=== PATIENT | female | born 1945 | race Caucasian/White ===

== ENCOUNTER → 2016-07-26 15:57 | Outpatient (CLI) | payer MEDICARE ==
[2015-08-28 11:42] VITALS: BMI 25.8
[~2016-07-26 15:57] MED LIST: ACETAMINOPHEN325 MG PO; ATIVAN2 MG/ML IV; BUMINATE50 ML IV; CLONAZEPAM0.25 MG/TA PO; COREG6.25 MG PO; FLORANEX / LACT1 TAB PO; FLOVENT HFA 22012 GM INH; FUROSEMIDE10 MG/M1 IV; GABAPENTIN100 MG PO; HYDROCODON-ACE1 EAC9 PO; IMODIUM2 MG PO; INTRALIPID 20%250 ML IV; K-DUR20 MEQ PO; KLONOPIN0.5 MG PO; LASIX20 MG PO; LOMOTIL TABLET1 TAB PO; MORPHINE SULF5 MG/ML IV; NORCO 7.5/325 T1 TA1 PO; NORVASC10 MG PO; PEPCID40 MG PO; PERCOCET 10/3251 TA1 PO; PHENERGAN25 M1 PO; PHENYTOIN100 MG/4 M PO; PROCALAMINE I1000 ML IV; REGLAN INJ10 MG/2 ML IV; REMERON15 MG PO; SALINE FLUSH10 ML IV; SYNTHROID50 MCG PO; THEOCHRON300 MG PO; VENTOLIN HFA18 GM INH; XIFAXAN200 MG PO
[2016-07-26 16:47] LABS: BASOPHILS 0.3 % (0.0-2.0); EOSINOPHILS 2.1 % (0-7); HEMATOCRIT 30.5 % (36.0-48.0); HEMOGLOBIN 9.8 g/dL (12-16); IMMATURE GRANULOCYTES 0.3 % (0-5); LYMPHOCYTES 43.3 % (15-50); MCH 31.6 pg (26.0-34.0); MCHC 32.1 g/dL (31.0-37.0); MCV 98.4 fL (80.0-100.0); MEAN PLATELET VOLUME 9.6 fL (7.4-10.4); MONOCYTES 16.8 % (2-11); NEUTROPHILS 37.2 % (40-80); PLATELET COUNT 186 10x3/uL (130-400); RDW 16.8 % (11.5-14.5); WBC 3.9 10x3/uL (4.8-10.8)
[2016-07-26 16:59] LABS: ANION GAP 14.1 mmol/L (8-16); CALCIUM 8.7 mg/dL (8.5-10.1); CARBON DIOXIDE 23.4 mmol/L (21.0-32.0); CREATININE - SERUM 1.2 mg/dL (0.6-1.3); MAGNESIUM - SERUM 1.7 mg/dL (1.8-2.4); POTASSIUM - SERUM 4.5 mmol/L (3.5-5.1)
== END | disposition home or self-care (01) ==
LOC: D.LAB 08:00
PROVIDERS: Internal Medicine Cardiovascular Disease
DX: C56.9 Malignant neoplasm of unspecified ovary (principal)

== ENCOUNTER → 2016-08-09 16:08 | Outpatient (CLI) | payer MEDICARE ==
[2015-08-28 11:42] VITALS: BMI 25.8
[2016-08-09 17:15] LABS: BASOPHILS 0.7 % (0.0-2.0); HEMATOCRIT 29.7 % (36.0-48.0); HEMOGLOBIN 9.8 g/dL (12-16); IMMATURE GRANULOCYTES 0.3 % (0-5); LYMPHOCYTES 28.2 % (15-50); MCH 32.2 pg (26.0-34.0); MCV 97.7 fL (80.0-100.0); MEAN PLATELET VOLUME 9.9 fL (7.4-10.4); MONOCYTES 6.2 % (2-11); NEUTROPHILS 63.6 % (40-80); PLATELET COUNT 194 10x3/uL (130-400); RBC 3.04 10x6/uL (4.00-5.40); WBC 3.1 10x3/uL (4.8-10.8)
== END | disposition home or self-care (01) ==
LOC: D.LAB 08:15
PROVIDERS: Obstetrics & Gynecology Gynecology
DX: C56.9 Malignant neoplasm of unspecified ovary (principal)

== ENCOUNTER 2016-11-21 10:53 | Outpatient (CLI) | payer MEDICARE ==
[~2016-11-21] VITALS: Ht 166.4 cm; Wt 75.0 kg
--- NOTE | ~2016-11-21 | HEMODYNAMI ---
PATIENT:GLO REEVES MEDICAL RECORD: [id number] : 47 LOCATION:[facility] ADMISSION DATE: 11/21/16 Generatedon:11/21/201613:36 Patient name: GLO REEVES Patient #: [id number] SSN: : 1945 Date of study: 11/21/2016 Page: Of Hemodynamic Procedure Report Patient Data Patient Demographics Procedure consent was obtained First Name: GLO Gender: Female Last Name: LALA : 1945 Middle Initial: M Age: 71 year(s) Patient #: [id number] Race: Unknown Additional ID: [id number] Contact details Address: [address] [place] [address] State: [place] City: [place] Zip code: [address] Past Medical History Allergies Allergen Reaction Date Comments Reported Other allergy 11/21/2016 Zofran Admission Admission Data Admission Date: 11/21/2016 Admission Time: 10:53 Procedure Procedure Types Cath Procedure Diagnostic Procedure LHC LHC w/Coronaries Miscellaneous Procedures Moderate Sedation up to 15 minutes Procedure Description Procedure Date Procedure Date: 11/21/2016 Procedure Start Time: 13:19 Procedure End Time: 13:32 Procedure Staff Name Function Wild Garza MD Performing Physician Shanell Alexander RT Scrub Kristal Lora RN Nurse Gali Salas RT Monitor Procedure Data Cath Procedure Fluoroscopy Diagnostic fluoroscopy Total fluoroscopy Time: 2 time: 2 min min Diagnostic fluoroscopy Total fluoroscopy dose: 139 dose: 139 mGy mGy Contrast Material Contrast Material Type Amount (ml) Isovue 300 62 Entry Location Entry Primary Successful Side Size Upsize Upsize Entry Closure Succes sful Closure Location (Fr) 1 (Fr) 2 (Fr) Remarks Device Remarks Femoral Right 5 Fr Exoseal artery Estimated blood loss: 10 ml Diagnostic catheters Device Type Used For End Catheter Placement Medtronic Dexterity 5Fr Procedure JL 4.0 catheter (NO CHARGE) Medtronic Dexterity 5Fr Procedure 3DRC catheter (NO CHARGE) Medtronic Dexterity 5Fr Procedure Pigtail catheter (NO CHARGE) Procedure Complications No complications Procedure Medications Medication Administration Route Dosage Oxygen NC 2 l/min Lidocaine 2% added to field 20 Heparin Flush Bag added to field 2 bags (1000units/500ml NS) 0.9% NaCl I.V. 100 ml/hr Versed I.V. 1 mg Fentanyl I.V. 50 mcg Versed I.V. 1 mg Fentanyl I.V. 50 mcg Fentanyl I.V. 50 mcg Hemodynamics Rest Heart Rate: 84 (bpm) Pressure Samples Time Site Value (mmHg) Purpose Heart Use Rate(bpm) 13:26 LV 129/0,17 Snapshot 86 13:26 AO 137/69(100) Pullback 85 13:26 LV 140/0,19 Pullback 85 Gradients Valve Time Site 1 Site 2 Mean SEP/DFP Peak To Heart Use (mmHg) (sec/min) Peak Rate (mmHg) (bpm) Aortic 13:26 LV AO 8 21 3 85 140/0,19 137/69(100) Calculations Valve P-P Mean Valve Index Valve Source Name Gradient Area Flow (cm2) Aortic 3 8 3 8 Snapshots Pre Cath Intra NCS Post Cath Vital Signs Time Heart Resp SPO2 NIBP (mmHg) Rhythm Pain Sedation Rate (ipm) (%) Status Level (bpm) 13:11:35 80 17 100 153/84(127) NSR 0 (11) 10(A) , No pain 13:15:59 79 19 97 129/81(103) NSR 0 (11) 10(A) , No pain 13:20:20 74 16 97 127/66(102) NSR 0 (11) 9(A) , No pain 13:24:40 84 17 97 129/73(101) NSR 0 (11) 9(A) , No pain 13:28:56 85 17 97 118/73(94) NSR 0 (11) 9(A) , No pain 13:34:38 87 17 99 138/89(119) NSR 0 (11) 10(A) , No pain Medications Time Medication Route Dose Verified Delivered Reason Notes Effe ctiveness by by 13:11:30 Oxygen NC 2 Wild Buffie used for l/min Greg Loar lump roller 13:11:40 Lidocaine 2% added 20ml Wild Wild for local to vial Greg Garza MD anesthetic field 13:11:45 Heparin Flush added 2 Wild Wild used for Bag to bags Greg Garza MD procedure (1000units/500ml field NS) 13:11:56 0.9% NaCl I.V. 100 Wild Buffie Per ml/hr Greg Lora RN physician 13:18:11 Versed I.V. 1 mg Wild Buffie for Greg Lora RN sedation 13:18:17 Fentanyl I.V. 50 Wild Buffie for mcg Greg Lora RN sedation 13:22:43 Versed I.V. 1 mg Wild Buffie for Greg Lora RN sedation 13:22:47 Fentanyl I.V. 50 Wild Buffie for mcg Greg Lora RN sedation 13:26:06 Fentanyl I.V. 50 Wild Buffie for mcg Greg Lora RN sedation Procedure Log Time Note 12:41:27 Diagnostic Cath Status : Elective 12:41:42 Kristal Lora RN sent for patient. Start room use. 12:41:43 Time tracking: Regular hours 12:41:47 Plan of Care:Hemodynamics will remain stable., Cardiac rhythm will remain stable., Comfort level will be maintained., Respiratory function will remain adequate., Patient/ family verbilizes understanding of procedure., Procedure tolerated without complication., Recovers from procedure without complications.. 12:57:56 Patient received from Pre/Post Procedure Room to CCL 3 Alert and oriented. Tansferred to table in Supine position. 12:57:57 Warm blankets applied, and bobby hugger turned on for patient comfort. 12:57:57 Correct patient and procedure confirmed by team. 12:57:59 Signed procedure consent form obtained from patient. 12:58:00 ECG and BP/O2 sat monitors applied to patient. 13:10:07 Vital chart was started 13:10:08 Baseline sample Acquired. 13:10:18 Rhythm: sinus tachycardia 13:10:20 Full Disclosure recording started 13:10:42 H&P Date Dictated: 11/21/2016 Within 30 days and on chart., H&P Addendum completed by physician on day of procedure. (MUST COMPLETE FOR ALL OUTPATIENTS). 13:10:44 Pre-procedure instructions explained to patient. 13:10:46 Family in waiting room. 13:10:51 Patient NPO since Midnight. 13:11:02 Patient allergic to Other allergyZofran 13:11:05 Is the patient allergic to Iodine/contrast media? No. 13:11:08 Is patient on blood thinner?No 13:11:17 Patient diabetic? No. 13:11:25 Snore? No 13:11:27 Sleep apnea? No 13:11:30 Oxygen 2 l/min NC was administered by Kristal Lora RN; used for procedure; 13:11:35 Dentures? No ? 13:11:40 Lidocaine 2% 20ml vial added to field was administered by Wild Garza MD; for local anesthetic; 13:11:45 Heparin Flush Bag (1000units/500ml NS) 2 bags added to field was administered by Wild Garza MD; used for procedure; 13:11:52 IV patent on arrival in right forearm with 0.9% NaCl at [facility]. 13:11:56 0.9% NaCl 100 ml/hr I.V. was administered by Kristal Lora RN; Per physician; 13:15:21 Lab results completed and on chart. 13:15:25 Right groin area was prepped with chlora-prep and draped in sterile fashion 13:15:33 Alarms reviewed by R. N. 13:15:35 Sharps counted by scrub and verified by R.N. 13:15:36 Physician paged 13:15:36 Physician arrived 13:15:54 --------ALL STOP TIME OUT------ 13:15:54 Final Timeout: patient, procedure, and site verified with staff and physician. All members of the team are in agreement. 13:15:57 Right groin site verified by team. 13:16:02 Sedation plan: IV Moderate Sedation Versed, Fentanyl 13:16:06 Physical assessment completed. ASA score P 2 - A patient with mild systemic disease as per Wild Garza MD. 13:18:11 Versed 1 mg I.V. was administered by Kristal Lora RN; for sedation; 13:18:17 Fentanyl 50 mcg I.V. was administered by Kristal Lora RN; for sedation; 13:19:13 Zero performed for pressure channel P1 13:19:50 Procedure started. 13:19:55 Local anesthetic to right femoral artery with Lidocaine 2% by Wild Garza MD.INITIAL ACCESS ONLY 13:20:39 A 5 Fr sheath was inserted into the Right Femoral artery 13:20:49 Use device set Femoral Dx 13:21:43 Acist Syringe opened to sterile field. 13:21:44 Bag Decanter opened to sterile field. 13:21:44 Medline Cath Pack opened to sterile field. 13:21:45 Terumo 5Fr Register Sheath opened to sterile field. 13:21:46 St Rodolfo 260cm J .035 wire opened to sterile field. 13:21:51 Acist Hand Control opened to sterile field. 13:21:52 Acist Manifold opened to sterile field. 13:21:53 Tegaderm 4 x 4 opened to sterile field. 13:22:05 A Medtronic Dexterity 5Fr JL 4.0 catheter (NO CHARGE) was advanced over the wire and used for Procedure. 13:22:26 LCA angiography performed. 13:22:43 Versed 1 mg I.V. was administered by Kristal Lora RN; for sedation; 13:22:47 Fentanyl 50 mcg I.V. was administered by Kristal Lora RN; for sedation; 13:22:58 Catheter removed. 13:23:10 A Medtronic Dexterity 5Fr 3DRC catheter (NO CHARGE) was advanced over the wire and used for Procedure. 13:23:16 RCA angiography performed. 13:24:21 Catheter removed. 13:25:04 A Medtronic Dexterity 5Fr Pigtail catheter (NO CHARGE) was advanced over the wire and used for Procedure. 13:25:25 LV angiography performed. 13:26:06 Fentanyl 50 mcg I.V. was administered by Kristal Lora RN; for sedation; 13:27:03 EF : 55 % 13:27:04 Catheter removed. 13:27:37 Cordis 5Fr Exoseal opened to sterile field. 13:28:04 Sheath removed intact; hemostasis achieved with Exoseal to the Right Femoral artery. 13:28:08 Procedure ended.(Physican Out) ::28 Fluoroscopy time 02.00 minutes. ::34 Fluoroscopy dose: 139 mGy 13::34 Flurop Dose total: 139 13::41 Contrast amount:Isovue 300 62ml. 13:29:43 Sharps counted by scrub and verified by R.N. 13:29:47 Insertion/operative site no bleeding no hematoma. 13:29:52 Post-op/insertion site Right Femoral artery dressed using a 4 x 4 and Tegaderm. 13:31:17 Post right femoral artery:stable 13:31:20 Post Procedure Pulses reassessed and unchanged 13:31:25 Post procedure rhythm: unchanged. 13:31:28 Estimated blood loss: 10 ml 13:31:29 Post procedure instruction explained to patient.Patient verbalizes understanding. 13:31:40 Procedure type changed to Cath procedure, Diagnostic procedure, LHC, LHC w/Coronaries, Miscellaneous Procedures, Moderate Sedation up to 15 minutes 13:31:41 Procedure and supply charges have been captured, reviewed, submitted and are correct. 13:32:06 Procedure Complication : No complications 13:32:10 Vital chart was stopped 13:32:11 See physician's report for complete and final results. 13:32:15 Report given to Pre/Post Procedure Room. 13:32:18 Patient transfered to Pre/Post Procedure Room with Stretcher. 13:32:20 Procedure ended. 13:32:20 Full Disclosure recording stopped 13:32:31 End room use (Document Last) Device Usage Item Name Manufacture Quantity Catalog Hospital Part Current Minimal Lo t# / Number Charge Number Stock Stock Serial# Code Acist Acist 1 [id number] [id number] [id number] [id number] 20 Syringe Medical Systems Inc Bag Microtek 1 2002S [id number] 11826 [id number] 5 DecSpaBooker Inc. Medline Cardinal 1 [id number] 225613 11670 229713 5 Constant [facility] 1 [id number] 528436 352646 102869 [address] Rodolfo St Rodolfo 1 927105 402435 077763 [id number] 30 260cm J .035 wire Acist Acist 1 75187 909983 931217 591548 5 Hand Medical Control Systems Inc Acist Acist 1 46521 377331 758042 560075 5 Manifold Medical Systems Inc Tegaderm 1 1626W 546320 133674 559883 5 4 x 4 Medtronic Medtronic 1 [id number] 204101 491716 5 Dexterity 5Fr JL 4.0 catheter (NO CHARGE) Medtronic Medtronic 1 [id number] 334656 534536 5 Dexterity 5Fr 3DRC catheter (NO CHARGE) Medtronic Medtronic 1 [id number] 577492 422606 5 Dexterity 5Fr Pigtail catheter (NO CHARGE) Edyta Molina 1 EX500 609296 702635 161827 10 5Fr Health Exoseal Signature Audit [place] Stage Time Signature Unsigned Intra-Procedure 11/21/2016 Gali Salas 1:36:26 PM RT(R) Signatures Monitor : Gali Salas Signature : RT Date : Time : [address] [place] [address]
--- NOTE | ~2016-11-21 | OP ---
PATIENT NAME: GLO REEVES MEDICAL RECORD: [id number] :47 LOCATION:D.CAT ADMISSION DATE: SURGEON: RAFAEL PARKS M.D. DATE OF OPERATION: 11/21/2016 REFERRING PHYSICIAN: Jorden Love MD. PROCEDURES PERFORMED: 1. Selective coronary angiography. 2. Left heart catheterization with ventriculogram. INDICATION: A 71-year-old who presents with symptoms of angina and abnormal Cardiolite stress test revealing anterior wall ischemia. EQUIPMENT USED: A 5-[place] JL4, Joseph right, pigtail catheter. TECHNIQUE: A 5-[place] sheath was inserted in retrograde fashion in the right common femoral artery. Next, selective coronary angiography was performed in standard views using 5-[place] JL4 and Joseph right. Left heart catheterization was performed using a pigtail catheter. CORONARY ANATOMY: 1. Left main: Left main trunk is moderate in caliber. It gives rise to the LAD and circumflex. It is a smooth-walled vessel and angiographically normal. 2. LAD: This is a large caliber vessel extending to the apex. It gives rise to a moderate caliber diagonal proximal segment. The LAD and diagonal are smooth-walled vessels and angiographically normal. 3. Circumflex: This vessel is moderate in caliber. It is smooth-walled vessel and angiographically normal. 4. Right coronary artery: This vessel is moderate in caliber and dominant. It provides the PDA and distal segment. This vessel is smooth-walled and angiographically normal. 5. Left ventricle: Left ventricle is normal in size and function. No wall motion abnormalities are seen. Estimated ejection fraction is 55%. IMPRESSION: 1. Normal coronary arteries. 2. Normal left ventricular function. RECOMMENDATIONS: I suspect the Cardiolite stress was false positive. We will continue with medical management. TRANSINT:[id number] Voice Confirmation ID: [id number] DOCUMENT ID: [id number] RAFAEL PARKS M.D. CC: [id number] DICTATION DATE: 11/21/16 1337 ELECTRONIC PREPRESS SYSTEM OPERATOR: 11/21/161947 DEP CLI 11/21/16 [facility] [address] [id number]
[2016-11-21] MEDS ORDERED: LISINOPRIL10 MG PO (11:23)
[2016-11-21 11:24] VITALS: BP 168/89; Ht 166.4 cm; Wt 75.0 kg
[2016-11-21 11:41] LABS: BASOPHILS 0.6 % (0-2); EOSINOPHILS 3.5 % (0-7); HEMATOCRIT 30.9 % (36.0-48.0); IMMATURE GRANULOCYTES 0.3 % (0-5); LYMPHOCYTES 41.5 % (15-50); MCH 31.8 pg (26.0-34.0); MCHC 32.4 g/dL (31.0-37.0); MCV 98.4 fL (80.0-100.0); MEAN PLATELET VOLUME 9.7 fL (7.4-10.4); MONOCYTES 13.5 % (2-11); NEUTROPHILS 40.6 % (40-80); PLATELET COUNT 178 10x3/uL (130-400); RBC 3.14 10x6/uL (4.00-5.40); RDW 15.3 % (11.5-14.5); WBC 3.2 10x3/uL (4.8-10.8)
[2016-11-21 12:00] LABS: ANION GAP 15.1 mmol/L (8-16); CALCIUM 8.6 mg/dL (8.5-10.1); CARBON DIOXIDE 20.9 mmol/L (21.0-32.0); CREATININE - SERUM 1.6 mg/dL (0.6-1.3)
--- NOTE | 2016-11-21 14:34 | NUR ---
1350 RECEIVED PT FROM ANDROID PROGRAMMER. PT IS DROWSY, AWAKENS TO VERBAL STIMULI. DENIES ANY C/O PAIN OR NAUSEA. DRESING TO RIGHT GROIN IS CDI, NO BLEEDING OR HEMATOMA NOTED AT SITE. VSS. AT BEDSIDE. CALL LIGHT IN REACH. 1405 PT DENIES ANY C/O. DRESSING TO RIGHT GROIN IS CDI, NO BLEEDING OR HEMATOMA NOTED.
--- NOTE | 2016-11-21 14:41 | NUR ---
1440 PT DENIES ANY C/O. VSS. DRESING RIGHT GROIN IS CDI, NO BLEEDING OR HEMATOMA NOTED. AT BEDSIDE.
--- NOTE | 2016-11-21 15:26 | NUR ---
1515 PT STATES SHE HAS A HEADACHE, REQUESTS HER HOME DOSE OF 2 REGULAR STRENGTH ASPIRIN TABS SHE USES PRN FOR HEADACHES. TC TO DR PARKS WITH ORDER RECEIVED.
--- NOTE | 2016-11-21 16:32 | NUR ---
1615 PORT HAS BEEN FLUSHED AND DEACCESSED PER PROTOCOL. REVIEWED DC INSTRUCTIONS WITH PT AND WHO VERBALIZE UNDERSTANDING. PT ESCORTED TO PRIVATE AUTO VIA WC BY STAFF WITH DRIVING HER HOME.
== END 2016-11-21 16:15 | disposition home or self-care (01) ==
LOC: D.CATH 10:53
PROVIDERS: Internal Medicine Cardiovascular Disease
DX: I20.9 Angina pectoris, unspecified (principal); R94.30 Abnormal result of cardiovascular function study, unspecified; Z01.812 Encounter for preprocedural laboratory examination

== ENCOUNTER → 2017-01-11 16:17 | Outpatient (CLI) | payer MEDICARE ==
[2016-11-21 11:24] VITALS: BMI 27.1
[~2017-01-11 16:17] MED LIST changes: +LISINOPRIL10 MG PO
[2017-01-11 16:47] LABS: BASOPHILS 0.5 % (0-2); EOSINOPHILS 10.4 % (0-7); HEMATOCRIT 34.6 % (36.0-48.0); IMMATURE GRANULOCYTES 0.4 % (0-5); MCH 31.3 pg (26.0-34.0); MCHC 31.8 g/dL (31.0-37.0); MCV 98.3 fL (80.0-100.0); MEAN PLATELET VOLUME 9.9 fL (7.4-10.4); MONOCYTES 6.5 % (2-11); NEUTROPHILS 58.2 % (40-80); PLATELET COUNT 190 10x3/uL (130-400); RBC 3.52 10x6/uL (4.00-5.40); RDW 14.8 % (11.5-14.5); WBC 5.7 10x3/uL (4.8-10.8)
[2017-01-11 17:17] LABS: ALBUMIN 3.9 g/dL (3.4-5.0); ANION GAP 18.1 mmol/L (8-16); BILIRUBIN - INDIRECT 0.29 mg/dL (0.00-1.00); BILIRUBIN - TOTAL 0.33 mg/dL (0.2-1.3); CARBON DIOXIDE 20.7 mmol/L (21.0-32.0); CREATININE - SERUM 1.5 mg/dL (0.6-1.3); MAGNESIUM - SERUM 1.9 mg/dL (1.8-2.4); PHOSPHOROUS 4.3 mg/dL (2.5-4.9); POTASSIUM - SERUM 4.8 mmol/L (3.5-5.1)
[2017-01-11 17:19] LABS: BILIRUBIN - DIRECT 0.04 mg/dL (0.00-0.30)
== END | disposition home or self-care (01) ==
LOC: D.LAB 08:00
PROVIDERS: Obstetrics & Gynecology Gynecology
DX: C56.9 Malignant neoplasm of unspecified ovary (principal)

== ENCOUNTER → 2017-01-19 15:53 | Outpatient (CLI) | payer MEDICARE ==
[2016-11-21 11:24] VITALS: BMI 27.1
[2017-01-19 16:23] LABS: BASOPHILS 0.6 % (0-2); EOSINOPHILS 8.2 % (0-7); HEMATOCRIT 33.6 % (36.0-48.0); IMMATURE GRANULOCYTES 0.1 % (0-5); LYMPHOCYTES 20.4 % (15-50); MCH 31.3 pg (26.0-34.0); MCHC 32.7 g/dL (31.0-37.0); MCV 95.7 fL (80.0-100.0); MEAN PLATELET VOLUME 9.4 fL (7.4-10.4); MONOCYTES 8.4 % (2-11); NEUTROPHILS 62.3 % (40-80); PLATELET COUNT 171 10x3/uL (130-400); RBC 3.51 10x6/uL (4.00-5.40); RDW 14.5 % (11.5-14.5); WBC 6.8 10x3/uL (4.8-10.8)
== END | disposition home or self-care (01) ==
LOC: D.LAB 01-18 08:00
PROVIDERS: Obstetrics & Gynecology Gynecology
DX: C56.9 Malignant neoplasm of unspecified ovary (principal)

== ENCOUNTER 2017-07-28 08:35 | Emergency (ER) | payer MEDICARE ==
[2016-11-21 11:24] VITALS: BMI 27.1
[2017-07-28 09:05] LABS: APPEARANCE CLEAR (CLEAR); COLOR YELLOW (YELLOW)
[2017-07-28 09:06] LABS: BACTERIA MODERATE /hpf (NONE SEEN); BILIRUBIN NEGATIVE (NEGATIVE); EPITHELIAL CELLS 0-5 /hpf (0-5); GLUCOSE NEGATIVE (NEGATIVE); KETONE NEGATIVE (NEGATIVE); MUCUS <1+ /lpf (NONE SEEN); NITRITE NEGATIVE (NEGATIVE); PROTEIN TRACE mg/dL (NEGATIVE); RED CELLS - URINE 0-5 /hpf (0-5); UROBILINOGEN NORMAL (NORMAL)
[2017-07-28 09:07] LABS: BASOPHILS 0.4 % (0-2); EOSINOPHILS 2.5 % (0-7); HEMATOCRIT 31.2 % (36.0-48.0); HEMOGLOBIN 9.9 g/dL (12-16); IMMATURE GRANULOCYTES 0.3 % (0-5); LYMPHOCYTES 15.5 % (15-50); MCH 30.3 pg (26.0-34.0); MCHC 31.7 g/dL (31.0-37.0); MCV 95.4 fL (80.0-100.0); MEAN PLATELET VOLUME 9.3 fL (7.4-10.4); NEUTROPHILS 76.3 % (40-80); PLATELET COUNT 354 10x3/uL (130-400); RBC 3.27 10x6/uL (4.00-5.40); RDW 13.5 % (11.5-14.5); WBC 7.2 10x3/uL (4.8-10.8)
[2017-07-28 09:33] LABS: ALBUMIN 3.6 g/dL (3.4-5.0); BILIRUBIN - TOTAL 0.25 mg/dL (0.2-1.3); CALCIUM 9.5 mg/dL (8.5-10.1); CARBON DIOXIDE 25.4 mmol/L (21.0-32.0); CREATININE - SERUM 2.2 mg/dL (0.6-1.3); POTASSIUM - SERUM 4.4 mmol/L (3.5-5.1); PROTEIN - SERUM 7.9 g/dL (6.4-8.2)
== END 2017-07-28 12:17 | disposition home or self-care (01) ==
LOC: D.ER 08:35
PROVIDERS: Emergency Medicine
DX: R10.9 Unspecified abdominal pain (principal); N39.0 Urinary tract infection, site not specified; D64.9 Anemia, unspecified; R59.0 Localized enlarged lymph nodes; E86.0 Dehydration; N17.9 Acute kidney failure, unspecified; Z85.43 Personal history of malignant neoplasm of ovary

== ENCOUNTER → 2017-09-21 16:11 | Outpatient (CLI) | payer MEDICARE ==
[2016-11-21 11:24] VITALS: BMI 27.1
[~2017-09-21 16:11] MED LIST changes: +COLACE100 MG PO; +MACROBID100 MG PO; +NIFEDIPINE ER30 MG PO; +OXYBUTYNIN CHLOR5 MG PO; +ROXICODONE15 MG PO
[2017-09-21 16:32] LABS: BASOPHILS 0.2 % (0-2); EOSINOPHILS 0.4 % (0-7); HEMOGLOBIN 12.2 g/dL (12-16); IMMATURE GRANULOCYTES 1.6 % (0-5); LYMPHOCYTES 27.6 % (15-50); MCH 28.8 pg (26.0-34.0); MCV 87.3 fL (80.0-100.0); MEAN PLATELET VOLUME 9.1 fL (7.4-10.4); MONOCYTES 9.2 % (2-11); RBC 4.24 10x6/uL (4.00-5.40); WBC 4.5 10x3/uL (4.8-10.8)
[2017-09-21 16:33] LABS: PLATELET COUNT 83 10x3/uL (130-400)
[2017-09-21 17:08] LABS: PLATELET ESTIMATE DECREASED
== END | disposition home or self-care (01) ==
LOC: D.LAB 08:00
PROVIDERS: Obstetrics & Gynecology Gynecology
DX: C56.9 Malignant neoplasm of unspecified ovary (principal)

== ENCOUNTER → 2017-10-15 12:30 | Outpatient (CLI) | payer MEDICARE ==
[2016-11-21 11:24] VITALS: BMI 27.1
[2017-10-15 13:21] LABS: BASOPHILS 0.1 % (0-2); EOSINOPHILS 0.7 % (0-7); HEMOGLOBIN 10.6 g/dL (12-16); IMMATURE GRANULOCYTES 1.3 % (0-5); LYMPHOCYTES 9.1 % (15-50); MCH 29.4 pg (26.0-34.0); MCHC 33.1 g/dL (31.0-37.0); MCV 88.6 fL (80.0-100.0); MEAN PLATELET VOLUME 9.6 fL (7.4-10.4); MONOCYTES 10.1 % (2-11); NEUTROPHILS 78.7 % (40-80); RBC 3.61 10x6/uL (4.00-5.40); WBC 8.5 10x3/uL (4.8-10.8)
[2017-10-15 13:32] LABS: PLATELET COUNT 149 10x3/uL (130-400)
[2017-10-15 14:00] LABS: APPEARANCE SLT CLOUDY (CLEAR); BACTERIA MODERATE /hpf (NONE SEEN); BILIRUBIN NEGATIVE (NEGATIVE); COLOR PINK (YELLOW); EPITHELIAL CELLS 0-5 /hpf (0-5); GLUCOSE NEGATIVE (NEGATIVE); KETONE MODERATE mg/dL (NEGATIVE); MUCUS <1+ /lpf (NONE SEEN); NITRITE NEGATIVE (NEGATIVE); PROTEIN 3+ mg/dL (NEGATIVE); RED CELLS - URINE >50 /hpf (0-5); SPECIFIC GRAVITY 1.015 (1.005-1.020); UROBILINOGEN NORMAL (NORMAL)
[2017-10-15 14:02] LABS: APPEARANCE SLT CLOUDY (CLEAR); BACTERIA MODERATE /hpf (NONE SEEN); BILIRUBIN NEGATIVE (NEGATIVE); COLOR PINK (YELLOW); EPITHELIAL CELLS OCC /hpf (0-5); GLUCOSE NEGATIVE (NEGATIVE); KETONE MODERATE mg/dL (NEGATIVE); MUCUS <1+ /lpf (NONE SEEN); NITRITE NEGATIVE (NEGATIVE); PROTEIN 3+ mg/dL (NEGATIVE); UROBILINOGEN NORMAL (NORMAL)
== END | disposition home or self-care (01) ==
LOC: D.LAB 11:30 → D.OPS 12:30 → D.LAB 12:30
PROVIDERS: Obstetrics & Gynecology Gynecology
DX: C56.9 Malignant neoplasm of unspecified ovary (principal)

== ENCOUNTER 2017-12-14 10:10 | Inpatient (IN) | payer MEDICARE ==
[~2017-12-14] VITALS: Ht 166.4 cm; Wt 63.5 kg
--- NOTE | ~2017-12-14 | HEMODYNAMI ---
PATIENT:GLO REEVES MEDICAL RECORD: [id number] : 47 LOCATION:[facility] D.2225 ADMISSION DATE: 12/14/17 Generatedon:12/17/201710:13 Patient name: GLO REEVES Patient #: [id number] SSN: : 1945 Date of study: 12/17/2017 Page: Of Hemodynamic Procedure Report Patient Data Patient Demographics Procedure consent was obtained First Name: GLO Gender: Female Last Name: LALA : 1945 Middle Initial: M Age: 72 year(s) Patient #: [id number] Race: Unknown Additional ID: [id number] Contact details Address: [address] [place] [address] State: [place] City: [place] Zip code: [address] Past Medical History Allergies Allergen Reaction Date Comments Reported Other allergy 11/21/2016 Zofran Sulfa drugs 12/17/2017 Admission Admission Data Admission Date: 12/14/2017 Admission Time: 18:12 Room #: D.2225 Height (in.): 65.5 BSA: 1.71 (m2) Height (cm.): 166.37 BMI: 22.94 (kg/m2) Weight (lbs.): 140 Weight (kg.): 63.5 Procedure Procedure Types Cath Procedure Peripheral Cath Diagnostic Procedure Cath Peripheral Nephro Nephrostomy Tube Exchange Procedure Description Procedure Date Procedure Date: 12/17/2017 Procedure Start Time: 9:23 Procedure Staff Name Function Ajay Vázquez MD Performing Physician Dary Beverly RT Artificial Plastic Eye Maker Dary Bveerly RT Monitor Yg Hart RT Scrub Isela Mathis RN Nurse Nini Chauhan RN Nurse Procedure Data Cath Procedure Fluoroscopy Diagnostic fluoroscopy Total fluoroscopy Time: 0 time: 0 min min Diagnostic fluoroscopy Total fluoroscopy dose: 100 dose: 100 mGy mGy Contrast Material Contrast Material Type Amount (ml) Isovue 300 25 Procedure Medications Medication Administration Route Dosage unlisted medication Versed I.V. 1 mg Fentanyl I.V. 50 mcg Lidocaine 1% added to field 20 Heparin Flush Bag added to field 1 bags (1000units/500ml NS) Fentanyl I.V. 50 mcg Versed I.V. 1 mg Versed I.V. 1 mg Fentanyl I.V. 50 mcg Hemodynamics Rest BSA: 1.71 (m2) O2 Consumption: Estimated: 171.96 (ml/min) O2 Consumption indexed : Estimated:100.56 (ml/min/m) Heart Rate: 93 (bpm) Snapshots Pre Cath Intra NCS Post Cath Vital Signs Time Heart Resp SPO2 etCO2 NIBP (mmHg) Rhythm Pain Sedation Rate (ipm) (%) (mmHg) Status Level (bpm) 9:15:13 112 38 96 0 151/83(122) NSR 0 (11) , 10(A) No pain 9:19:32 94 17 96 0 161/79(124) NSR 0 (11) , 10(A) No pain 9:24:31 109 32 76 0 Measuring NSR 0 (11) , 10(A) No pain 9:24:55 135 19 61 0 Disturbed NSR 0 (11) , 10(A) No pain 9:29:13 109 18 96 0 150/94(101) NSR 0 (11) , 10(A) No pain 9:33:27 96 16 96 0 149/78(124) NSR 0 (11) , 10(A) No pain 9:37:47 93 15 100 30.1 147/74(103) NSR 0 (11) , 10(A) No pain 9:42:05 93 12 100 32.4 147/75(106) NSR 3 (11) , 10(A) Tolerable 9:46:17 98 13 100 29.4 152/80(123) NSR 1 (11) , 9(A) Very mild 9:50:29 90 12 99 34.6 138/71(105) NSR 1 (11) , 9(A) Very mild 9:54:39 81 9 97 30.1 121/67(86) NSR 1 (11) , 9(A) Very mild 9:58:47 87 11 97 35.4 129/79(106) NSR 1 (11) , 9(A) Very mild 10:02:59 87 13 97 33.9 139/75(111) NSR 1 (11) , 9(A) Very mild 10:07:07 87 13 98 33.1 131/76(107) NSR 1 (11) , 9(A) Very mild 10:11:19 86 12 99 31.6 136/76(103) NSR 1 (11) , 9(A) Very mild Medications Time Medication Route Dose Verified Delivered Reason Notes Effect iveness by by 9:38:24 cefepime Tien Velez RN, MD 9:38:38 Versed I.V. 1 mg Ajay Terrazas for Tien Vázquez RN sedation 9:38:52 Fentanyl I.V. 50 Ajay Nini for mcg Tien Vázquez RN sedation 9:42:48 Lidocaine 1% added 20ml Ajay Moss used for to vial Kathie Vázquez MD procedure field DEGROOT 9:43:00 Heparin Flush added 1 Ajay Moss used for Bag to bags Kathie Vázquez MD procedure (1000units/500ml field DEGROOT NS) 9:45:53 Fentanyl I.V. 50 Ajay Terrazas for mcg Tien Vázquez RN sedation 9:46:09 Versed I.V. 1 mg Ajay Terrazas for Tien Vázquez RN sedation 9:49:39 Versed I.V. 1 mg Ajay Terrazas for Tien Vázquez RN sedation 9:49:48 Fentanyl I.V. 50 Ajay Sarabiaody for mcg Tien Vázquez RN sedation Procedure Log Time Note 9:08:51 Patient Height : 65.5 inches 9:08:55 Patient Weight : 140 lbs 9:09:56 Time tracking: Regular hours (M-F 7:00 - 5:00) 9:13:39 Plan of Care:Hemodynamics will remain stable., Cardiac rhythm will remain stable., Comfort level will be maintained., Respiratory function will remain adequate., Patient/ family verbilizes understanding of procedure., Procedure tolerated without complication., Recovers from procedure without complications.. 9:13:57 Patient received from Med/Surg to IR Alert and oriented. Tansferred to table in Supine position. 9:14:00 Correct patient and procedure confirmed by team. 9:14:02 Signed procedure consent form obtained from patient. 9:14:04 ECG and BP/O2 sat monitors applied to patient. 9:14:05 Vital chart was started 9:14:07 Baseline sample Acquired. 9:14:08 Full Disclosure recording started 9:14:09 - 9:14:15 H&P Date Dictated: 12/17/2017 Within 30 days and on chart.. 9:14:29 Pre-procedure instructions explained to patient. 9:14:30 Pre-op teaching completed and patient verbalized understanding. 9:14:34 Family in waiting room. 9:14:36 Patient NPO since Midnight. 9:14:50 Patient allergic to Sulfa drugs,zofran, carboplatnum 9:15:46 Is the patient allergic to Iodine/contrast media? No. 9:15:51 Patient diabetic? No. 9:15:53 - 9:16:14 ----Pre-sedation anethsthesia assessment.---- 9:16:18 Previous problem with sedation/anesthesia? No ? 9:16:21 Snore? No 9:16:25 Sleep apnea? No 9:16:28 Deviated septum? No 9:16:29 Opens mouth fully? Yes 9:16:31 Sticks out tongue? Yes 9:16:35 Airway obstruction? No ? 9:16:39 Dentures? No ? 9:16:49 IV patent on arrival in port with D5/.45%NaCl at O. 9:17:19 Left and right renal area was prepped with chlora-prep and draped in sterile fashion 9:18:41 Physician arrived 9:20:25 Final Timeout: patient, procedure, and site verified with staff and physician. All members of the team are in agreement. 9:22:06 Procedure started. 9:23:13 Local anesthetic to renal area with Lidocaine 1% by Ajay Vázquez MD.INITIAL ACCESS ONLY 9:38:24 cefepime was administered by Nini Chauhan RN; ; 9:38:38 Versed 1 mg I.V. was administered by iNni Chauhan RN; for sedation; 9:38:52 Fentanyl 50 mcg I.V. was administered by Nini Chauhan RN; for sedation ; 9:42:48 Lidocaine 1% 20ml vial added to field was administered by Ajay Vázquez MD; used for procedure; 9:43:00 Heparin Flush Bag (1000units/500ml NS) 1 bags added to field was administered by Ajay Vázquez MD; used for procedure; 9:43:08 Use device set IR Diagnostic 9:43:11 Sterile Angiographic Pack opened to sterile field. 9:43:12 Bag Decanter (2002S) opened to sterile field. 9:43:23 GLIDE WIRE Angled Super Stiff 180cm ([id number]) opened to sterile field. 9:43:48 10FR Nephroureterostomy Stent ([id number]) opened to sterile field. 9:45:53 Fentanyl 50 mcg I.V. was administered by Nini Chauhan RN; for sedation ; 9:46:09 Versed 1 mg I.V. was administered by Nini Chauhan RN; for sedation; 9:48:07 STOPCOCK 3-Way Large Bore ([id number]) opened to sterile field. 9:48:08 STOPCOCK 3-Way Large Bore ([id number]) opened to sterile field. 9:49:39 Versed 1 mg I.V. was administered by Nini Chauhan RN; for sedation; 9:49:48 Fentanyl 50 mcg I.V. was administered by Nini Chauhan RN; for sedation ; 9:50:47 BAG, DRAINAGE EMPTY 600ML W/MARTINA ([id number]) opened to sterile field. 9:50:48 BAG, DRAINAGE EMPTY 600ML W/MARTINA (EDH568) opened to sterile field. 9:51:03 10FR Nephroureterostomy Stent (R58570) opened to sterile field. 9:53:36 SUTURE ETHILON 2-0 BLK MONO FS opened to sterile field. 9:53:37 SUTURE ETHILON 2-0 BLK MONO FS opened to sterile field. 9:54:14 bilateral neph tubes exchanged 10:02:15 Contrast amount:Isovue 300 25ml. 10:08:24 Procedure ended.(Physican Out) 10:08:30 Fluoroscopy time 00.00 minutes. 10:08:49 Fluoroscopy dose: 100 mGy 10:08:49 Flurop Dose total: 100 10:08:51 Procedure and supply charges have been captured, reviewed, submitted an d are correct. 10:08:55 Report given to Med/Surg. 10:13:41 Vital chart was stopped Device Usage Item Name Manufacture Quantity Catalog Hospital Part Current M inimal Lot# / Number Charge Number Stock Stock Serial# Code Sterile Cardinal 1 [id number] [id number] 5 Angiographic Pack Health Bag Decanter Microtek 1 [id number] 42873 [id number] 5 () Medical Inc. GLIDE WIRE Angled Terumo 1 [id number] 997607 367528 5 Super Stiff 180cm (ZY3585) 10FR [employer] 1 [id number] 646855 057267 780423 5 Nephroureterostomy Stent (T23524) STOPCOCK 3-Way [employer] 2 W59916 273514 3871 320901 5 [id number] Large Bore [id number] ([id number]) BAG, DRAINAGE Merit 2 [id number] 923733 184339 967403 5 EMPTY 600ML W/MARTINA Medical (UPR762) SUTURE ETHILON 2-0 Ethicon 2 [id number] 805038 431440 5 BLK MONO FS Signature Audit [place] Stage Time Signature Unsigned Intra-Procedure 12/17/2017 Dayr Beverly 10:13:37 AM RT(R) Signatures Monitor : Dary Beverly RT Signature : Date : Time : [facility] [address] [place] [address]
[~2017-12-14 10:10] MED LIST changes: -COLACE100 MG PO; -MACROBID100 MG PO; -NIFEDIPINE ER30 MG PO; -OXYBUTYNIN CHLOR5 MG PO; -ROXICODONE15 MG PO
[2017-12-14 14:34] LABS: BASOPHILS 0.3 % (0-2); EOSINOPHILS 1.1 % (0-7); HEMATOCRIT 34.8 % (36.0-48.0); HEMOGLOBIN 12.2 g/dL (12-16); IMMATURE GRANULOCYTES 1.1 % (0-5); LYMPHOCYTES 20.4 % (15-50); MCH 31.7 pg (26.0-34.0); MCHC 35.1 g/dL (31.0-37.0); MCV 90.4 fL (80.0-100.0); MEAN PLATELET VOLUME 8.9 fL (7.4-10.4); MONOCYTES 7.6 % (2-11); NEUTROPHILS 69.5 % (40-80); PLATELET COUNT 56 10x3/uL (130-400); RBC 3.85 10x6/uL (4.00-5.40); RDW 18.4 % (11.5-14.5); WBC 3.6 10x3/uL (4.8-10.8)
[2017-12-14 14:53] LABS: PLATELET ESTIMATE DECREASED
[2017-12-14 14:54] LABS: ALBUMIN 2.8 g/dL (3.4-5.0); ANION GAP 17.4 mmol/L (8-16); BILIRUBIN - TOTAL 0.55 mg/dL (0.2-1.3); CARBON DIOXIDE 22.5 mmol/L (21.0-32.0); CREATININE - SERUM 1.2 mg/dL (0.6-1.3); POTASSIUM - SERUM 3.9 mmol/L (3.5-5.1); PROTEIN - SERUM 7.2 g/dL (6.4-8.2)
[2017-12-14 15:07] LABS: COLOR YELLOW (YELLOW)
[2017-12-14 15:08] LABS: APPEARANCE CLEAR (CLEAR); BILIRUBIN NEGATIVE (NEGATIVE); GLUCOSE NEGATIVE (NEGATIVE); KETONE SMALL mg/dL (NEGATIVE); NITRITE NEGATIVE (NEGATIVE); PROTEIN 2+ mg/dL (NEGATIVE); UROBILINOGEN NORMAL (NORMAL)
[2017-12-14 15:09] LABS: WHITE CELLS - URINE 0-5 /hpf (0-5)
[2017-12-14 15:10] LABS: BACTERIA MODERATE /hpf (NONE SEEN); YEAST OCC /hpf (NONE SEEN)
[2017-12-14 15:11] LABS: APPEARANCE HAZY (CLEAR); BILIRUBIN NEGATIVE (NEGATIVE); COLOR YELLOW (YELLOW); GLUCOSE NEGATIVE (NEGATIVE); KETONE SMALL mg/dL (NEGATIVE); NITRITE POSITIVE (NEGATIVE); PROTEIN 2+ mg/dL (NEGATIVE); SPECIFIC GRAVITY 1.015 (1.005-1.020); UROBILINOGEN NORMAL (NORMAL)
[2017-12-14 15:12] LABS: BACTERIA MANY /hpf (NONE SEEN); RED CELLS - URINE >50 /hpf (0-5)
[2017-12-14 15:13] LABS: YEAST OCC /hpf (NONE SEEN)
[2017-12-14 20:00] VITALS: BP 168/83
[2017-12-14 21:41] VITALS: BP 168/83; BMI 23.0
[2017-12-14] MEDS ORDERED: MACROBID100 MG PO (21:55)
[2017-12-14] MEDS ORDERED: PHENERGAN25 M1 PO (21:56)
[2017-12-14] MEDS ORDERED: OXYBUTYNIN CHLOR5 MG PO (21:57)
[2017-12-14] MEDS ORDERED: ROXICODONE15 MG PO (21:57)
[2017-12-14] MEDS ORDERED: NIFEDIPINE ER30 MG PO (21:58)
[2017-12-14] MEDS ORDERED: COLACE100 MG PO (21:58)
[2017-12-14] MEDS ORDERED: SYNTHROID50 MCG PO (21:59)
[2017-12-15] VITALS: BP 145/77
[2017-12-15 04:00] VITALS: BP 144/83
[2017-12-15 09:04] VITALS: BP 160/81
[2017-12-15 13:22] VITALS: Ht 166.4 cm; Wt 63.5 kg
[2017-12-15 13:23] VITALS: BP 151/92
[2017-12-15 14:28] LABS: BASOPHILS 0.3 % (0-2); EOSINOPHILS 0.8 % (0-7); HEMATOCRIT 36.4 % (36.0-48.0); HEMOGLOBIN 12.7 g/dL (12-16); LYMPHOCYTES 16.1 % (15-50); MCHC 34.9 g/dL (31.0-37.0); MCV 91.7 fL (80.0-100.0); MONOCYTES 7.5 % (2-11); NEUTROPHILS 74.3 % (40-80); PLATELET COUNT 50 10x3/uL (130-400); RBC 3.97 10x6/uL (4.00-5.40); RDW 18.3 % (11.5-14.5)
[2017-12-15 14:31] LABS: WBC 6.3 10x3/uL (4.8-10.8)
[2017-12-15 15:10] LABS: ALBUMIN 2.8 g/dL (3.4-5.0); ANION GAP 17.6 mmol/L (8-16); BILIRUBIN - TOTAL 0.43 mg/dL (0.2-1.3); CALCIUM 8.4 mg/dL (8.5-10.1); CARBON DIOXIDE 22.5 mmol/L (21.0-32.0); CREATININE - SERUM 1.3 mg/dL (0.6-1.3); POTASSIUM - SERUM 4.1 mmol/L (3.5-5.1); PROTEIN - SERUM 6.6 g/dL (6.4-8.2)
[2017-12-15 15:32] LABS: PLATELET ESTIMATE DECREASED
[2017-12-15 19:36] VITALS: BP 126/68
[2017-12-16] VITALS: BP 136/69
[2017-12-16 04:00] VITALS: BP 135/72
[2017-12-16 06:36] LABS: BASOPHILS 0.3 % (0-2); EOSINOPHILS 1.2 % (0-7); HEMATOCRIT 33.6 % (36.0-48.0); HEMOGLOBIN 11.5 g/dL (12-16); IMMATURE GRANULOCYTES 0.9 % (0-5); LYMPHOCYTES 17.1 % (15-50); MCH 31.5 pg (26.0-34.0); MCHC 34.2 g/dL (31.0-37.0); MCV 92.1 fL (80.0-100.0); MEAN PLATELET VOLUME 10.1 fL (7.4-10.4); NEUTROPHILS 73.5 % (40-80); RBC 3.65 10x6/uL (4.00-5.40); RDW 18.5 % (11.5-14.5); WBC 5.7 10x3/uL (4.8-10.8)
[2017-12-16 06:38] LABS: PLATELET COUNT 45 10x3/uL (130-400)
[2017-12-16 06:45] LABS: ALBUMIN 2.4 g/dL (3.4-5.0); ANION GAP 12.9 mmol/L (8-16); BILIRUBIN - TOTAL 0.3 mg/dL (0.2-1.3); CALCIUM 8.3 mg/dL (8.5-10.1); CREATININE - SERUM 1.2 mg/dL (0.6-1.3); POTASSIUM - SERUM 3.9 mmol/L (3.5-5.1)
[2017-12-16 08:33] VITALS: BP 164/80
[2017-12-16 11:57] VITALS: BP 163/80
[2017-12-16 13:30] LABS: BASOPHILS 0.3 % (0-2); EOSINOPHILS 1.1 % (0-7); HEMATOCRIT 31.2 % (36.0-48.0); HEMOGLOBIN 10.7 g/dL (12-16); IMMATURE GRANULOCYTES 0.9 % (0-5); MCH 31.8 pg (26.0-34.0); MCHC 34.3 g/dL (31.0-37.0); MCV 92.9 fL (80.0-100.0); MEAN PLATELET VOLUME 9.3 fL (7.4-10.4); MONOCYTES 7.1 % (2-11); NEUTROPHILS 79.6 % (40-80); RBC 3.36 10x6/uL (4.00-5.40); RDW 18.6 % (11.5-14.5); WBC 6.6 10x3/uL (4.8-10.8)
[2017-12-16 13:33] LABS: APTT 26.3 SECONDS (22.8-39.4); INR 1.06 (0.85-1.17); PROTIME 13.4 SECONDS (11.6-15.0)
[2017-12-16 13:34] LABS: PLATELET COUNT 40 10x3/uL (130-400)
[2017-12-16 13:47] LABS: CREATININE - SERUM 1.1 mg/dL (0.6-1.3)
[2017-12-16 17:00] VITALS: BP 145/77
[2017-12-16 19:59] VITALS: BP 155/74
[2017-12-17 04:30] VITALS: BP 130/71
[2017-12-17 05:02] LABS: BASOPHILS 0.2 % (0-2); EOSINOPHILS 2.3 % (0-7); HEMATOCRIT 29.8 % (36.0-48.0); HEMOGLOBIN 10.1 g/dL (12-16); IMMATURE GRANULOCYTES 0.7 % (0-5); MCH 31.5 pg (26.0-34.0); MCHC 33.9 g/dL (31.0-37.0); MCV 92.8 fL (80.0-100.0); MEAN PLATELET VOLUME 11.8 fL (7.4-10.4); MONOCYTES 8.3 % (2-11); NEUTROPHILS 70.5 % (40-80); PLATELET COUNT 61 10x3/uL (130-400); RBC 3.21 10x6/uL (4.00-5.40); RDW 18.6 % (11.5-14.5); WBC 5.6 10x3/uL (4.8-10.8)
[2017-12-17 05:10] LABS: ALBUMIN 2.1 g/dL (3.4-5.0); ANION GAP 12.9 mmol/L (8-16); BILIRUBIN - TOTAL 0.33 mg/dL (0.2-1.3); CALCIUM 8.2 mg/dL (8.5-10.1); CARBON DIOXIDE 25.8 mmol/L (21.0-32.0); POTASSIUM - SERUM 3.7 mmol/L (3.5-5.1); PROTEIN - SERUM 5.8 g/dL (6.4-8.2)
[2017-12-17 07:48] LABS: INR 1.06 (0.85-1.17); PROTIME 13.4 SECONDS (11.6-15.0)
[2017-12-17 09:08] VITALS: BP 145/72
[2017-12-17 12:45] VITALS: BP 130/85
[2017-12-17 16:29] VITALS: BP 155/82
[2017-12-17 19:50] VITALS: BP 157/80
[2017-12-17 22:22] VITALS: BP 158/78
[2017-12-18 04:42] VITALS: BP 130/76
[2017-12-18 06:45] LABS: BASOPHILS 0.2 % (0-2); EOSINOPHILS 2.8 % (0-7); HEMATOCRIT 31.2 % (36.0-48.0); HEMOGLOBIN 10.4 g/dL (12-16); IMMATURE GRANULOCYTES 0.6 % (0-5); LYMPHOCYTES 15.1 % (15-50); MCH 31.4 pg (26.0-34.0); MCHC 33.3 g/dL (31.0-37.0); MCV 94.3 fL (80.0-100.0); MEAN PLATELET VOLUME 11.3 fL (7.4-10.4); MONOCYTES 7.6 % (2-11); NEUTROPHILS 73.7 % (40-80); RBC 3.31 10x6/uL (4.00-5.40); RDW 18.9 % (11.5-14.5); WBC 6.3 10x3/uL (4.8-10.8)
[2017-12-18 06:47] LABS: PLATELET COUNT 101 10x3/uL (130-400)
[2017-12-18 07:01] LABS: ALBUMIN 2.3 g/dL (3.4-5.0); BILIRUBIN - TOTAL 0.39 mg/dL (0.2-1.3); CALCIUM 8.2 mg/dL (8.5-10.1); CREATININE - SERUM 1.1 mg/dL (0.6-1.3)
[2017-12-18 08:17] VITALS: BP 133/68
[2017-12-18 12:35] VITALS: BP 128/83
[2017-12-18 15:49] VITALS: BP 147/79
[2017-12-18 20:00] VITALS: BP 150/88
[2017-12-19 01:08] VITALS: BP 163/89
[2017-12-19 04:00] VITALS: BP 149/82
[2017-12-19 05:39] LABS: BASOPHILS 0.4 % (0-2); EOSINOPHILS 4.1 % (0-7); HEMATOCRIT 28.4 % (36.0-48.0); HEMOGLOBIN 9.5 g/dL (12-16); IMMATURE GRANULOCYTES 0.5 % (0-5); LYMPHOCYTES 10.6 % (15-50); MCH 31.7 pg (26.0-34.0); MCHC 33.5 g/dL (31.0-37.0); MCV 94.7 fL (80.0-100.0); MEAN PLATELET VOLUME 10.6 fL (7.4-10.4); MONOCYTES 10.7 % (2-11); NEUTROPHILS 73.7 % (40-80); WBC 5.6 10x3/uL (4.8-10.8)
[2017-12-19 05:44] LABS: PLATELET COUNT 145 10x3/uL (130-400)
[2017-12-19 06:10] LABS: ALBUMIN 2.1 g/dL (3.4-5.0); ANION GAP 12.2 mmol/L (8-16); BILIRUBIN - TOTAL 0.4 mg/dL (0.2-1.3); CALCIUM 7.7 mg/dL (8.5-10.1); CARBON DIOXIDE 26.3 mmol/L (21.0-32.0); CREATININE - SERUM 1.1 mg/dL (0.6-1.3); POTASSIUM - SERUM 3.5 mmol/L (3.5-5.1); PROTEIN - SERUM 5.5 g/dL (6.4-8.2)
[2017-12-19 09:17] VITALS: BP 149/81
[2017-12-19 12:49] VITALS: BP 152/82
== END 2017-12-19 14:00 | disposition home health service (06) | DRG 699 ==
LOC: D.ER 10:10 → D.MS 18:12
PROVIDERS: Emergency Medicine; Family Medicine; General Practice; Radiology Vascular & Interventional Radiology
PROC: 0T25X0Z Change Drainage Device in Kidney, External Approach (ICD-10-PCS; principal; 2017-12-17 09:00)
DX: T83.518A Infection and inflammatory reaction due to other urinary catheter, initial encounter (principal); N17.9 Acute kidney failure, unspecified; E44.0 Moderate protein-calorie malnutrition; C67.9 Malignant neoplasm of bladder, unspecified; D64.9 Anemia, unspecified; D69.6 Thrombocytopenia, unspecified; E86.0 Dehydration; Z85.3 Personal history of malignant neoplasm of breast; Z85.43 Personal history of malignant neoplasm of ovary

== ENCOUNTER → 2018-01-04 18:05 | Outpatient (CLI) | payer MEDICARE ==
[2017-12-15 13:22] VITALS: BMI 22.9
[~2018-01-04 18:05] MED LIST changes: +COLACE100 MG PO; +COMPAZINE10 MG PO; +DIFLUCAN150 MG PO; +MACROBID100 MG PO; +MACRODANTIN100 MG PO; +NIFEDIPINE ER30 MG PO; +OXYBUTYNIN CHLOR5 MG PO; +ROXICODONE15 MG PO
[2018-01-04 19:35] LABS: APPEARANCE CLEAR (CLEAR); BILIRUBIN NEGATIVE (NEGATIVE); COLOR YELLOW (YELLOW); GLUCOSE NEGATIVE (NEGATIVE); KETONE NEGATIVE (NEGATIVE); NITRITE NEGATIVE (NEGATIVE); PROTEIN TRACE mg/dL (NEGATIVE); UROBILINOGEN NORMAL (NORMAL)
[2018-01-04 19:36] LABS: APPEARANCE CLEAR (CLEAR); BACTERIA MANY /hpf (NONE SEEN); BILIRUBIN NEGATIVE (NEGATIVE); COLOR YELLOW (YELLOW); EPITHELIAL CELLS OCC /hpf (0-5); GLUCOSE NEGATIVE (NEGATIVE); KETONE NEGATIVE (NEGATIVE); NITRITE NEGATIVE (NEGATIVE); PROTEIN 1+ mg/dL (NEGATIVE); RED CELLS - URINE 0-5 /hpf (0-5); UROBILINOGEN NORMAL (NORMAL)
[2018-01-04 19:56] LABS: EPITHELIAL CELLS OCC /hpf (0-5); RED CELLS - URINE 0-5 /hpf (0-5)
[2018-01-04 19:57] LABS: BACTERIA FEW /hpf (NONE SEEN); YEAST <1+ /hpf (NONE SEEN)
== END | disposition home or self-care (01) ==
LOC: D.LABREF 18:05
PROVIDERS: Urology
DX: N39.0 Urinary tract infection, site not specified (principal)

== ENCOUNTER 2018-01-10 09:29 | Outpatient (CLI) | payer MEDICARE ==
[~2018-01-10] VITALS: Ht 166.4 cm; Wt 65.9 kg
--- NOTE | ~2018-01-10 | HEMODYNAMI ---
PATIENT:GLO REEVES MEDICAL RECORD: [id number] : 47 LOCATION:[facility] ADMISSION DATE: 01/10/18 Generatedon:01/10/201812:57 Patient name: GLO REEVES Patient #: [id number] SSN: : 1945 Date of study: 01/10/2018 Page: Of Hemodynamic Procedure Report Patient Data Patient Demographics Procedure consent was obtained First Name: GLO Gender: Female Last Name: LALA : 1945 [facility] Initial: PALMIRA Age: 72 year(s) Patient #: [id number] Race: Unknown Additional ID: [id number] Contact details [address]: [address] [place] [address] State: [place] City: [place] Zip code: [address] Past Medical History Allergies Allergen Reaction Date Comments Reported Other allergy 11/21/2016 Zofran Sulfa drugs 12/17/2017 Admission Admission Data Admission Date: 01/10/2018 Admission Time: 9:29 Procedure Procedure Types Cath Procedure Peripheral Cath Diagnostic Procedure Nephro Nephrostomy Tube Exchange Procedure Description Procedure Date Procedure Date: 01/10/2018 Procedure Start Time: 12:14 Procedure Staff Name Function Ajay Vázquez MD Performing Physician Yg Hart RT Monitor Catrachita Shoemaker RT Scrub Nini Chauhan RN Nurse Procedure Data Cath Procedure Fluoroscopy Diagnostic fluoroscopy Total fluoroscopy Time: 2.6 time: 2.6 min min Diagnostic fluoroscopy Total fluoroscopy dose: 27 dose: 27 mGy mGy Contrast Material Contrast Material Type Amount (ml) Isovue 300 20 Procedure Medications Medication Administration Route Dosage Lidocaine 1% added to field 20 Heparin Flush Bag added to field 2 bags (1000units/500ml NS) Versed I.V. 2 mg Fentanyl I.V. 100 mcg unlisted medication 1 Hemodynamics Rest Heart Rate: 95 (bpm) Snapshots Pre Cath Intra NCS Post Cath Vital Signs Time Heart Resp SPO2 etCO2 NIBP Rhythm Pain Sedation Rate (ipm) (%) (mmHg) (mmHg) Status Level (bpm) 11:45:43 93 13 100 26.2 128/59(87) NSR 0 (11) 10(A) , No pain 11:49:53 91 18 100 24 112/66(81) NSR 0 (11) 10(A) , No pain 11:54:03 95 12 100 25.5 125/58(86) NSR 0 (11) 10(A) , No pain 11:59:02 97 28 99 21.7 Measuring NSR 0 (11) 10(A) , No pain 12:00:05 93 12 100 26.2 Out of NSR 0 (11) 10(A) range , No pain 12:04:19 95 12 100 25.4 122/61(86) NSR 0 (11) 10(A) , No pain 12:08:31 92 13 100 26.2 122/62(81) NSR 0 (11) 10(A) , No pain 12:12:45 95 13 100 26.2 120/60(83) NSR 0 (11) 10(A) , No pain 12:17:38 91 10 100 28.4 123/64(88) NSR 0 (11) 10(A) , No pain 12:21:48 100 19 99 25.4 116/63(83) NSR 0 (11) 10(A) , No pain 12:25:56 90 14 98 29.2 112/62(87) NSR 0 (11) 10(A) , No pain 12:30:06 85 15 97 30.8 115/60(73) NSR 0 (11) 10(A) , No pain 12:34:18 82 5 98 28.5 106/58(85) NSR 0 (11) 10(A) , No pain 12:38:26 84 20 98 30.7 117/59(96) NSR 0 (11) 10(A) , No pain 12:42:38 87 20 99 30.7 120/63(96) NSR 0 (11) 10(A) , No pain 12:46:47 97 11 99 29.2 120/64(87) NSR 0 (11) 10(A) , No pain 12:50:55 89 9 98 29.9 112/60(83) NSR 0 (11) 10(A) , No pain 12:55:05 85 15 97 29.2 114/57(86) NSR 0 (11) 10(A) , No pain Medications Time Medication Route Dose Verified Delivered Reason Notes Effec tiveness by by 12:18:11 Lidocaine 1% added 20ml Ajay Moss used for to vial Kathie Vázquez MD procedure field DEGROOT 12:18:20 Heparin Flush added 2 Ajay Moss Bag to bags Kathie Vázquez MD (1000units/500ml field DEGROOT NS) 12:18:34 Versed I.V. 2 mg Ajay Terrazas for Tien Vázquez RN sedation 12:18:45 Fentanyl I.V. 100 Ajay Nini for mcg Tien Vázquez RN sedation 12:19:09 cefepime ivp 1gm Ajay Terrazas used for Tien Vázquez RN procedure MD Procedure Log Time Note 11:32:20 Yg Hart RT (R) (CV) sent for patient. Start room use. 11:32:25 Time tracking: Regular hours (M-F 7:00 - 5:00) 11:32:30 Plan of Care:Hemodynamics will remain stable., Cardiac rhythm will remain stable., Comfort level will be maintained., Respiratory function will remain adequate., Patient/ family verbilizes understanding of procedure., Procedure tolerated without complication., Recovers from procedure without complications.. 11:32:38 Patient received from Outpatients to IR Alert and oriented. Tansferred to table in Prone position. 11:32:39 Correct patient and procedure confirmed by team. 11:32:41 Signed procedure consent form obtained from patient. 11:32:43 Full Disclosure recording started 11:32:44 ECG and BP/O2 sat monitors applied to patient. 11:32:50 - 11:32:54 H&P Date Dictated: 01/10/2018 H&P Addendum completed by physician on day of procedure. (MUST COMPLETE FOR ALL OUTPATIENTS). 11:32:54 Pre-procedure instructions explained to patient. 11:32:55 Pre-op teaching completed and patient verbalized understanding. 11:32:57 Family in waiting room. 11:32:58 Patient NPO since Midnight. 11:33:03 Is the patient allergic to Iodine/contrast media? No. 11:33:05 Was the patient premedicated? No 11:33:08 Is patient on blood thinner?No 11:33:10 Patient diabetic? No. 11:33:12 - 11:33:12 ----Pre-sedation anethsthesia assessment.---- 11:33:15 Previous problem with sedation/anesthesia? No ? 11:33:16 Snore? No 11:33:17 Sleep apnea? No 11:33:18 Deviated septum? No 11:33:19 Opens mouth fully? No 11:33:21 Sticks out tongue? Yes 11:33:34 Airway obstruction? No ? 11:33:40 Dentures? No ? 11:33:46 Patient pain scale 0/10 no pain. 11:33:53 IV patent on arrival in port with 0.9% NaCl at [facility]. 11:33:54 Sharps counted by scrub and verified by R.N. 11:33:54 Alarms reviewed by R. N. 11:34:13 Lumbar area was prepped with chlora-prep and draped in sterile fashion 11:40:44 Use device set IR Diagnostic 11:40:45 Sterile Angiographic Pack opened to sterile field. 11:40:47 Bag Decanter (2002S) opened to sterile field. 11:40:58 BAG, DRAINAGE EMPTY 600ML W/MARTINA ([id number]) opened to sterile field. 11:40:58 BAG, DRAINAGE EMPTY 600ML W/MARTINA ([id number]) opened to sterile field. 11:44:38 Vital chart was started 11:44:40 Baseline sample Acquired. 12:12:39 Physician arrived 12:12:39 --------ALL STOP TIME OUT------ 12:12:40 Final Timeout: patient, procedure, and site verified with staff and physician. All members of the team are in agreement. 12:12:43 right Lumbar site verified by team. 12:12:50 Sedation plan: IV Moderate Sedation Medication:Versed, Fentanyl 12:13:59 GLIDE WIRE Angled Super Stiff 180cm ([id number]) opened to sterile field. 12:14:06 Procedure started. 12:14:13 Local anesthetic to rt Lumbar area with Lidocaine 1% by Ajay Vázquez MD.INITIAL ACCESS ONLY 12:16:02 10FR Nephroureterostomy Stent ([id number]) opened to sterile field. 12:18:11 Lidocaine 1% 20ml vial added to field was administered by Ajay Vázquez MD; used for procedure; 12:18:20 Heparin Flush Bag (1000units/500ml NS) 2 bags added to field was administered by Ajay Vázquez MD; ; 12:18:34 Versed 2 mg I.V. was administered by Nini Chauhan RN; for sedation; 12:18:45 Fentanyl 100 mcg I.V. was administered by Nini Chauhan RN; for sedation; 12:19:09 cefepime 1gm ivp was administered by Nini Chauhan RN; used for procedure; 12:20:22 STOPCOCK 3-Way Large Bore ([id number]) opened to sterile field. 12:24:29 SUTURE ETHILON 2-0 BLK MONO FS opened to sterile field. 12:25:00 rt nephro ureteral cath sutured in with 2.0 ethilon 12:38:34 left Lumbar area was prepped with chlora-prep and draped in sterile fashion 12:39:54 GLIDE WIRE Angled Super Stiff 180cm ([id number]) opened to sterile field. 12:40:10 Local anesthetic to left Lumbar area with Lidocaine 1% by Ajay Vázquez MD.ADDITIONAL ACCESS 12:40:31 10FR Nephroureterostomy Stent (V35174) opened to sterile field. 12:47:26 Tegaderm 6 x 8 (1628) opened to sterile field. 12:47:27 Tegaderm 6 x 8 (1628) opened to sterile field. 12:51:31 Procedure ended.(Physican Out) 12:52:58 Fluoroscopy time 02.60 minutes. 12:53:03 Fluoroscopy dose: 27 mGy 12:53:03 Flurop Dose total: 27 12:53:11 Contrast amount:Isovue 300 20ml. 12:53:13 Sharps counted by scrub and verified by R.N. 12:53:15 Insertion/operative site no bleeding no hematoma. 12:53:24 Post-op/insertion site Right Lumbar area dressed using a 4 x 4 and Tegaderm. 12:53:29 Post-op/insertion site Left Lumbar area dressed using a 4 x 4 and Tegaderm. 12:53:36 Post Lumbar area:stable 12:53:41 Procedure and supply charges have been captured, reviewed, submitted an d are correct. 12:56:38 Report given to Outpatients. 12:56:44 Patient transfered to Outpatients with Stretcher. 12:57:24 Vital chart was stopped Device Usage Item Name Manufacture Quantity Catalog Hospital Part Current M inimal Lot# / Number Charge Number Stock Stock Serial# Code Sterile Mora 1 [id number] 5 Angiographic Pack Health Bag Decanter Microtek 1 [id number] [id number] 5 () [employer] BAG, DRAINAGE Merit 2 [id number] [id number] [id number] [id number] 5 EMPTY 600ML W/MARTINA Medical ([id number]) GLIDE WIRE Angled Terumo 2 [id number] [id number] 5 Super Stiff 180cm (VY4962) 10FR [employer] 2 [id number] [id number] [id number] 5 Nephroureterostomy Stent (B64783) STOPCOCK 3-Way [employer] 1 [id number] 877519 2842 743060 5 [id number] Large Bore ([id number]) SUTURE ETHILON 2-0 Ethicon 1 [id number] 161604 5 BLK MONO FS Tegaderm 6 x 8 3M 2 1628 [id number] [id number] 5 (1628) Signature Audit [place] Stage Time Signature Unsigned Intra-Procedure 01/10/2018 Yg 12:57:21 PM [place] RT (R) (CV) Signatures Monitor : Yg Signature : Tanner RT Date : Time : [facility] [address] [place] [address]
[~2018-01-10 09:29] MED LIST changes: -COMPAZINE10 MG PO; -DIFLUCAN150 MG PO; -MACRODANTIN100 MG PO
[2018-01-10] MEDS ORDERED: MACRODANTIN100 MG PO (10:59)
[2018-01-10] MEDS ORDERED: NIFEDIPINE ER30 MG PO (11:00)
[2018-01-10] MEDS ORDERED: DIFLUCAN150 MG PO (11:00)
[2018-01-10 11:08] VITALS: Ht 166.4 cm; Wt 65.9 kg
[2018-01-10 11:33] LABS: BASOPHILS 0.4 % (0-2); EOSINOPHILS 0.8 % (0-7); HEMATOCRIT 27.8 % (36.0-48.0); HEMOGLOBIN 9.4 g/dL (12-16); IMMATURE GRANULOCYTES 1.2 % (0-5); LYMPHOCYTES 8.7 % (15-50); MCH 31.6 pg (26.0-34.0); MCHC 33.8 g/dL (31.0-37.0); MCV 93.6 fL (80.0-100.0); MEAN PLATELET VOLUME 8.7 fL (7.4-10.4); MONOCYTES 3.6 % (2-11); NEUTROPHILS 85.3 % (40-80); RBC 2.97 10x6/uL (4.00-5.40); RDW 18.2 % (11.5-14.5); WBC 14.6 10x3/uL (4.8-10.8)
[2018-01-10 11:34] LABS: PLATELET COUNT 379 10x3/uL (130-400)
[2018-01-10 11:43] LABS: APTT 28.7 SECONDS (22.8-39.4); INR 1.02 (0.85-1.17)
[2018-01-10 11:51] LABS: ANION GAP 16.7 mmol/L (8-16); CALCIUM 8.4 mg/dL (8.5-10.1); CARBON DIOXIDE 22.9 mmol/L (21.0-32.0); CREATININE - SERUM 1.8 mg/dL (0.6-1.3); POTASSIUM - SERUM 4.6 mmol/L (3.5-5.1)
== END 2018-01-10 15:00 | disposition home or self-care (01) ==
LOC: D.SP 09:29
PROVIDERS: General Practice
DX: N13.6 Pyonephrosis (principal); Z85.51 Personal history of malignant neoplasm of bladder; Z01.812 Encounter for preprocedural laboratory examination

== ENCOUNTER → 2018-01-25 13:16 | Outpatient (CLI) | payer MEDICARE ==
[2018-01-10 11:08] VITALS: BMI 23.8
[~2018-01-25 13:16] MED LIST changes: +COMPAZINE10 MG PO; +DIFLUCAN150 MG PO; +MACRODANTIN100 MG PO
== END | disposition home or self-care (01) ==
LOC: D.LABREF 13:16
DX: N39.0 Urinary tract infection, site not specified (principal); Z98.890 Other specified postprocedural states

== ENCOUNTER 2018-02-03 21:06 | Inpatient (IN) | payer MEDICARE ==
[~2018-02-03] VITALS: Ht 166.4 cm; Wt 63.5 kg
[~2018-02-03 21:06] MED LIST changes: -COMPAZINE10 MG PO
[2018-02-03] MEDS ORDERED: COMPAZINE10 MG PO (21:12)
[2018-02-03] MEDS ORDERED: GABAPENTIN100 MG PO (21:12)
[2018-02-03 22:00] VITALS: BP 92/59
[2018-02-03 22:22] LABS: APPEARANCE HAZY (CLEAR); BILIRUBIN 1+ (NEGATIVE); COLOR YELLOW (YELLOW); GLUCOSE NEGATIVE (NEGATIVE); KETONE NEGATIVE (NEGATIVE); NITRITE NEGATIVE (NEGATIVE); PROTEIN 2+ mg/dL (NEGATIVE); SPECIFIC GRAVITY 1.005 (1.005-1.020); UROBILINOGEN NORMAL (NORMAL)
[2018-02-03 22:24] LABS: BACTERIA MODERATE /hpf (NONE SEEN); EPITHELIAL CELLS 0-5 /hpf (0-5); RED CELLS - URINE 0-5 /hpf (0-5)
[2018-02-03 22:46] LABS: APPEARANCE HAZY (CLEAR); BILIRUBIN 1+ (NEGATIVE); COLOR DK YELLOW (YELLOW); GLUCOSE NEGATIVE (NEGATIVE); KETONE NEGATIVE (NEGATIVE); NITRITE NEGATIVE (NEGATIVE); PROTEIN 2+ mg/dL (NEGATIVE); SPECIFIC GRAVITY 1.005 (1.005-1.020); UROBILINOGEN NORMAL (NORMAL)
[2018-02-03 22:49] LABS: BACTERIA MODERATE /hpf (NONE SEEN); RED CELLS - URINE 0-5 /hpf (0-5)
[2018-02-03 22:51] LABS: BASOPHILS 0.1 % (0-2); EOSINOPHILS 0.4 % (0-7); HEMATOCRIT 25.9 % (36.0-48.0); IMMATURE GRANULOCYTES 0.3 % (0-5); MCH 32.1 pg (26.0-34.0); MCHC 30.9 g/dL (31.0-37.0); MONOCYTES 11.2 % (2-11); PLATELET COUNT 551 10x3/uL (130-400); RBC 2.49 10x6/uL (4.00-5.40); RDW 18.4 % (11.5-14.5); WBC 11.7 10x3/uL (4.8-10.8)
[2018-02-03 23:00] VITALS: BP 116/57
[2018-02-03 23:00] LABS: ANION GAP 2.4 mmol/L (8-16); BILIRUBIN - TOTAL 0.55 mg/dL (0.2-1.3); CALCIUM 7.7 mg/dL (8.5-10.1); CREATININE - SERUM 3.1 mg/dL (0.6-1.3); POTASSIUM - SERUM 4.6 mmol/L (3.5-5.1); PROTEIN - SERUM 5.8 g/dL (6.4-8.2)
[2018-02-03 23:17] LABS: CARBON DIOXIDE 45.2 mmol/L (21.0-32.0)
[2018-02-04] VITALS (13 sets, daily range): BP systolic 91–132; BP diastolic 43–70; BMI 23.0
[2018-02-05 06:57] VITALS: BP 98/51
[2018-02-05 08:09] LABS: BASOPHILS 0.1 % (0-2); EOSINOPHILS 0.5 % (0-7); HEMATOCRIT 27.1 % (36.0-48.0); HEMOGLOBIN 8.5 g/dL (12-16); IMMATURE GRANULOCYTES 0.4 % (0-5); MCH 32.4 pg (26.0-34.0); MCHC 31.4 g/dL (31.0-37.0); MCV 103.4 fL (80.0-100.0); MEAN PLATELET VOLUME 9.1 fL (7.4-10.4); MONOCYTES 9.4 % (2-11); NEUTROPHILS 85.6 % (40-80); PLATELET COUNT 511 10x3/uL (130-400); RBC 2.62 10x6/uL (4.00-5.40); RDW 17.9 % (11.5-14.5); WBC 11.2 10x3/uL (4.8-10.8)
[2018-02-05 08:37] LABS: ALBUMIN 1.9 g/dL (3.4-5.0); BILIRUBIN - TOTAL 0.55 mg/dL (0.2-1.3); CALCIUM 7.5 mg/dL (8.5-10.1); CARBON DIOXIDE 39.2 mmol/L (21.0-32.0); CREATININE - SERUM 3.6 mg/dL (0.6-1.3); PROTEIN - SERUM 5.7 g/dL (6.4-8.2)
[2018-02-05 08:40] LABS: ANION GAP 1.1 mmol/L (8-16); INR 1.02 (0.85-1.17); POTASSIUM - SERUM 5.3 mmol/L (3.5-5.1)
[2018-02-05 08:45] LABS: APTT < 20.0 SECONDS (22.8-39.4)
[2018-02-05 09:18] VITALS: BP 97/49
[2018-02-05 15:01] VITALS: Ht 166.4 cm; Wt 63.5 kg
== END 2018-02-05 15:23 | disposition hospice, inpatient (51) | DRG 699 ==
LOC: D.ER 21:06 → D.EDHOLD 02-04 01:12 → D.M2 02-04 01:12
PROVIDERS: Emergency Medicine; Legal Medicine; Radiology Vascular & Interventional Radiology
DX: T83.512A Infection and inflammatory reaction due to nephrostomy catheter, initial encounter (principal); N17.9 Acute kidney failure, unspecified; N39.0 Urinary tract infection, site not specified; K92.2 Gastrointestinal hemorrhage, unspecified; C56.9 Malignant neoplasm of unspecified ovary; D63.1 Anemia in chronic kidney disease; E86.0 Dehydration; D63.8 Anemia in other chronic diseases classified elsewhere; K59.00 Constipation, unspecified; R41.0 Disorientation, unspecified; Y83.8 Other surgical procedures as the cause of abnormal reaction of the patient, or of later complication, without mention of misadventure at the time of the procedure

== ENCOUNTER 2018-02-05 15:40 | Inpatient (IN) | payer OTHER ==
[~2018-02-05] VITALS: Ht 165.1 cm; Wt 63.6 kg
[~2018-02-05 15:40] MED LIST changes: +COMPAZINE10 MG PO
[2018-02-05 16:34] VITALS: BP 109/51
[2018-02-05 21:08] VITALS: BP 87/38
[2018-02-05 21:40] VITALS: BP 130/86; Ht 165.1 cm; Wt 63.6 kg
[2018-02-06 01:40] VITALS: BP 73/83
[2018-02-06 09:38] VITALS: BP 90/42
[2018-02-06 20:36] VITALS: BP 69/35
[2018-02-07 08:29] VITALS: BP 95/34
[2018-02-07 13:30] VITALS: BP 88/36
[2018-02-07 20:08] VITALS: BP 75/29
== END 2018-02-08 13:29 | DRG 951 ==
LOC: D.M2 15:40
DX: Z51.5 Encounter for palliative care (principal)